=== PATIENT | female | born 1950 | race African-American/Black ===

== ENCOUNTER 2018-12-25 11:34 | Emergency (ER) | payer OTHER, BC ==
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
== END 2018-12-25 12:52 | disposition home or self-care (01) ==
LOC: ER 11:34
DX: S29.012A Strain of muscle and tendon of back wall of thorax, initial encounter (principal); S33.5XXA Sprain of ligaments of lumbar spine, initial encounter; V43.52XA Car driver injured in collision with other type car in traffic accident, initial encounter; Y93.9 Activity, unspecified; Y92.9 Unspecified place or not applicable
CPT/HCPCS: 99282

== ENCOUNTER 2019-03-02 08:44 | Day surgery (SDC) | payer OTHER, BC ==
--- OUTSIDE RECORDS SUMMARY | 2019-03-02 08:50 | XMS REPORT ---
:1950 [facility] Address [address] [place] [address] Dr. Lubin [address] [place] [id number] Care Team Providers Name Role Phone Unavailable Unavailable Unavailable Problems This patient has no known problems. Allergies, Adverse Reactions, Alerts This patient has no known allergies or adverse reactions. Medications This patient has no known medications.
[2019-03-02] MEDS ORDERED: BUPIVACAINE 0.25% PF 10 ML VIAL ONE (09:01)
[2019-03-02] MEDS ORDERED: LIDOCAINE HCL/PF 3.5% OPTH GEL ONE (09:01)
[2019-03-02] MEDS ORDERED: PHENYLEPHRINE 10% OPTH 5ML ONE (09:01)
[2019-03-02] MEDS ORDERED: TETRACAINE HCL 0.5% 4ML OPTH ONE (09:01)
[2019-03-02] MEDS ORDERED: LIDOCAINE 2% MPF 5 ML VIAL ONE (09:01)
[2019-03-02] MEDS ORDERED: NA CHLORIDE 0.9% 500 ML ONE (09:01)
[2019-03-02] MEDS ORDERED: CYCLOPENTOLATE 1% OPTH 2 ML ONE (09:01)
[2019-03-02] MEDS ORDERED: TETRACAINE HCL 0.5% 4ML OPTH OPTH ONE (09:02)
[2019-03-02] MEDS ORDERED: CYCLOPENTOLATE 1% OPTH 2 ML OPTH ONE ×3 (09:10→09:20)
[2019-03-02] MEDS ORDERED: PHENYLEPHRINE 10% OPTH 5ML OPTH ONE ×3 (09:10→09:20)
[2019-03-02] MEDS ORDERED: EPINEPHRINE/PF 1 MG/ML AMP ONE (09:13)
[2019-03-02] MEDS ORDERED: NS 0.9% VIAL 10 ML ONE (09:13)
[2019-03-02] MEDS ORDERED: MOXIFLOXACIN HCL 10 DROPS/ML **OR USE OPTH ONE (09:14)
[2019-03-02] MEDS ORDERED: BSS OPTHALMIC SOL 15 ML BOT OPTH ONE (09:14)
[2019-03-02] MEDS ORDERED: LIDOCAINE 1% MPF 2 ML AMPULE ONE (09:14)
[2019-03-02] MEDS ORDERED: DUOVISC 1 KIT OPTH ONE (09:14)
[2019-03-02] MEDS ORDERED: BALANCED SALT IRRIG PLAIN 500 ML BTL IRR ONE (09:14)
[2019-03-02] MEDS: LIDOCAINE HCL/PF 3.5% OPTH GEL OPTH ONE ×2 (09:27→10:35)
[2019-03-02] MEDS ORDERED: MIDAZOLAM HCL 2 MG/2 ML INJ ONE (10:10)
[2019-03-02] MEDS ORDERED: FENTANYL CITR 100 MCG/2 ML ONE (10:10)
[2019-03-02] MEDS ORDERED: TRYPAN BLUE 0.5 ML SYR OPTH ONE (10:49)
--- NOTE | 2019-03-02 11:16 | P.BOP ---
Preoperative diagnosis: Nuclear sclerotic and cortical cataract OD Postoperative diagnosis: Same Primary procedure: Phacoemulsification with IOL OD Estimated blood loss: None Anesthesia: Local (Topical with anesthesia for cataract surgery) Complications: None Implants: [id number] +22.5 @ 178 Transferred to: Other (Day surgery) Condition: Good
--- NOTE | 2019-03-02 23:34 | OP ---
Date of Procedure: 03/02/2019 Surgeon: Joselyn Pena MD Anesthesiologist: Sujit Krishna CRNA; Mateo Cotto CRNA; and Román Lugo MD Preoperative Diagnosis: Nuclear sclerotic and cortical cataract with regular astigmatism, right eye. Operation Performed: Phacoemulsification with toric intraocular lens, right eye. Anesthesia: Per cataract surgery. Complications: None. Description Of Procedure: In the operating room the patient was prepped and draped in the usual sterile fashion for ophthalmic surgery. A lid speculum was placed in the right eye. Two paracentesis sites were made superiorly and inferiorly in the limbal cornea. Viscoat was placed in the anterior chamber and a crescent blade was used to make a corneal groove and tunnel, and a keratome was used to enter the anterior chamber. Provisc was placed in the anterior chamber and a 360 degree capsulotomy was performed with a cystitome. The lens was hydrodissected with BSS and rotated freely. The lens was removed with a stop and chop technique. A 3.30 phaco CDE was used to remove the lens. Residual cortex was removed with the irrigation and aspiration. Provisc was placed in the capsular bag. A [id number] +22.5 at 178 degrees lens was placed in the capsular bag without complications. Irrigation and aspiration were used to remove residual viscoelastic. The paracentesis sites were hydrated with BSS. The wound and paracentesis sites were inspected and found to be watertight. Vigamox 0.07 cc was placed intracamerally at the end of the procedure. The eye was irrigated with balanced salt solution. The eye was patched with a soft cotton patch and Ribeiro metal shield. The patient was returned to day surgery in good condition. Comments: Akten was placed in the eye in Day Surgery and irrigated out of the eye with BSS in the OR. Preservative-free 1% lidocaine was placed in the anterior chamber prior to Viscoat. Discharge Instructions: Ms. Chand was discharged to home in good condition. She is to follow up with Dr. Pena. PRUDENCE/IVONNE Voice ID: [id number] Report ID: [id number] EMILY
== END 2019-03-02 11:38 | disposition home or self-care (01) ==
LOC: OR 08:44
PROVIDERS: ATTEND Ophthalmology Retina Specialist
PROC: 08RJ3JZ Replacement of Right Lens with Synthetic Substitute, Percutaneous Approach (ICD-10-PCS; principal; 2019-03-02 10:00)
DX: H25.11 Age-related nuclear cataract, right eye (principal); H25.011 Cortical age-related cataract, right eye; H52.221 Regular astigmatism, right eye; H35.30 Unspecified macular degeneration; I10 Essential (primary) hypertension; E66.9 Obesity, unspecified; Z68.34 Body mass index [BMI] 34.0-34.9, adult; Z83.518 Family history of other specified eye disorder; Z83.3 Family history of diabetes mellitus
CPT/HCPCS: 66984; J0171; J2250; J3010; J2001; V2630; V2787